=== PATIENT | male | born 1970 | race Caucasian/White ===

== ENCOUNTER 2020-07-16 10:47 | Day surgery (SDC) | payer OTHER, SELFPAY ==
--- NOTE | 2020-07-16 | PATH_ITS ---
[facility] Accession Number: [id number] . 01 Material submitted: . PART A: esophagus, E-G Junction - GE JUNCTION PART B: rectum - RECTAL POLYP . 01 Clinical history: . A: RULE OUT BARROSO'S . 02 Diagnosis: A. Gastroesophageal Junction, Biopsy: Squamocolumnar junctional mucosa with no diagnostic abnormality. Negative for intestinal metaplasia. Negative for dysplasia and malignancy. . B. Rectum, Polyp, Biopsy: Tubular adenoma. MRV 07/21/2020 1437 Local . 02 Electronically signed: . Barbra Dennison MD, Pathologist NPI- [id number] . 01 Gross description: . A. Specimen A is received in formalin labeled GE junction and consists of a 0.3 x 0.2 x 0.2 cm lang fragment of soft tissue, which is entirely submitted in cassette A1. B. Specimen B is received in formalin labeled rectum polyp and consists of a 0.6 x 0.4 x 0.2 cm lang-pink fragment of soft tissue, which is entirely submitted in cassette B1. ([id number]) /[facility] 07/17/2020 1553 Local . 02 Pathologist provided ICD-10: D12.8 . 02 CPT . 144939, [id number] Performed at: 01 [facility] [address], [place], [place] [id number] MD Antoine William MD Phone: [phone] Performed at: 02 [facility] [address] [place], [place] [id number] MD Barbra Dennison MD Phone: [phone]
[2020-07-16 11:35] VITALS: BP 156/92; PULSE 58; RESP 16; TEMP 36.3; O2SAT 99; BMI 27.5
[2020-07-16] MEDS: SODIUM CHLORIDE 0.9% 1,000 ML 84 ML IV (11:46)
--- NOTE | 2020-07-16 12:35 | PM.HP.1 ---
History of Present Illness History of Present Illness Date Patient Seen: 07/16/20 Chief complaint: SDC Narrative: History of diverticulitis 5 times and need for screening, plus a history of GERD. Patient History Family & Social History Social History: household members spouse Tobacco & Substance use: Smoking Status Never smoker alcohol intake frequency a few times a week Substance Use Type does not use Meds Home Medications and Allergies Home Medications Medication Instructions Recorded Confirmed Type atorvastatin 20 mg PO DAILY 07/16/20 07/16/20 History omeprazole 20 mg PO DAILY 07/16/20 07/16/20 History Allergies Allergy/AdvReac Type Severity Reaction Status Date / Time No Known Drug Allergies Allergy Verified 07/16/20 11:33 Exam Vital Signs (past 8 hours): - 07/16/20 11:35 Temperature 97.4 F L Pulse Rate 58 L Respiratory Rate 16 Blood Pressure 156/92 H Pulse Oximetry 99 Oxygen Delivery Method Room Air Narrative Exam Narrative: Oropharynx free of lesions Chest clear to auscultation percussion Cardiac exam reveals no S3 or murmur Assessment & Plan Assessment & Plan narrative: History of diverticulitis 5 times need for colorectal cancer screening and ruling out any lesions in the area. Risks, benefits, alternatives have been explained. History of GERD. Need for EGD. Same risks benefits and alternatives explained.
--- NOTE | 2020-07-16 12:37 | PM.OP.ENDO ---
Operative Date/Time/Diagnoses Date of procedure: 07/16/20 Pre-op diagnosis: See indication and findings Procedure & Clinicians Study performed: EGD and colonoscopy Same procedure as scheduled: Yes Indications: History of diverticulitis 5 times a need for colorectal cancer screening. GERD Surgeon: Jaxon Dugan Procedure Notes Procedure in detail: After informed consent was obtained the patient was placed in left lateral decubitus position. The video upper scope was placed into the oropharynx and with the patient's help swallowed into the esophagus. The esophagus stomach and duodenum were carefully examined. On withdrawal, retroflexed view the GE junction was performed. The scope was removed. The patient tolerated procedure well. The patient was then turned the colonoscope substituted. This was placed in the rectum slowly advanced to the cecum. On slow withdrawal mucosa was carefully examined. The scope was removed. The patient tolerated procedure well. Blood loss none Complications none Sedation Total sedation time Findings EGD 1. Esophagus with 1 small possible area extending above the top of the G folds. Biopsies taken to rule out very short-segment Olea's. This was less than a cm in length at about 40 cm. 2. Normal stomach 3. Normal duodenal bulb and sweep Colonoscopy 1. Kyqu-bw-cdiedefy diverticula in the sigmoid colon and over about a 5-10 cm segment was very adhesed with a luminal narrowing. Patchy diverticular colitis present 2. 6 mm polyp in the rectum Jumbo biopsy removed completely 3. Otherwise negative colonoscopy to cecum Stroke swelled will need of follow-up was of his biopsies. Colonoscopy should be repeated 10 years.
[2020-07-16] MEDS: fentaNYL 100 MCG/2 ML INJ IV ×2 (13:01→13:16)
[2020-07-16] MEDS: MIDAZOLAM 2 MG/2 ML VIAL 6 MG IV ×2 (13:01→13:16)
[2020-07-16 13:36] VITALS: BP 141/89; PULSE 65; RESP 14; TEMP 36.6; O2SAT 95
[2020-07-16 13:41] VITALS: BP 168/93; PULSE 64; RESP 12; O2SAT 98
[2020-07-16 13:47] VITALS: BP 158/95; PULSE 65; RESP 12; O2SAT 95
[2020-07-16 13:53] VITALS: BP 161/97; PULSE 64; RESP 16; TEMP 36.4; O2SAT 95
== END 2020-07-16 14:05 | disposition home or self-care (01) ==
PROVIDERS: PCP Family Medicine; Referring Provider Internal Medicine Gastroenterology; Visit Provider Internal Medicine Gastroenterology
PROC: 0DJD8ZZ Inspection of Lower Intestinal Tract, Via Natural or Artificial Opening Endoscopic (ICD-10-PCS; CPT 45378; principal; 2020-07-16 12:30)
PROC: 0DJ08ZZ Inspection of Upper Intestinal Tract, Via Natural or Artificial Opening Endoscopic (ICD-10-PCS; CPT 43235; 2020-07-16 12:30)
DX: K21.9 Gastro-esophageal reflux disease without esophagitis (principal); Z12.11 Encounter for screening for malignant neoplasm of colon; Z87.19 Personal history of other diseases of the digestive system; K57.30 Diverticulosis of large intestine without perforation or abscess without bleeding; D12.8 Benign neoplasm of rectum
CPT/HCPCS: 43239; 45378; J2250; J3010